=== PATIENT | female | born 1950 | race Caucasian/White ===

== ENCOUNTER 2024-08-24 13:10 | Emergency (ER) | payer MEDICARE, BC ==
[~2024-08-24] VITALS: Ht 157.5 cm; Wt 56.7 kg
[~2024-08-24 13:10] MED LIST: ASPI81TA31 PO; ATOR40TA PO; CALC-343 PO; CHOL-9 PO; CITA20TA16 PO; CLINDAMYCIN; DIAZ5TAB PO; DICLOFENAC 1%; LEVO88TA5 PO; LOSA50TA39 PO; METO-357 PO; MULT-594 PO; PANT40TA49 PO; TRET20CR35 TP
[2024-08-24] MEDS ORDERED: NIRM1TAB6 PO (15:53)
[2024-08-24] MEDS ORDERED: LIDO30AD10 TP (15:53)
[2024-08-24] MEDS ORDERED: HYDR-3980 PO (15:54)
[2024-08-24 16:02] VITALS: BP 122/69; O2SAT 99
== END 2024-08-24 16:04 | disposition home or self-care (01) ==
LOC: ER 13:10
DX: U07.1 COVID-19 (principal); S22.31XA Fracture of one rib, right side, initial encounter for closed fracture; M25.511 Pain in right shoulder; R05.9 Cough, unspecified; I25.2 Old myocardial infarction; Z79.82 Long term (current) use of aspirin; Z79.899 Other long term (current) drug therapy; Z60.2 Problems related to living alone; Z86.69 Personal history of other diseases of the nervous system and sense organs; Z87.39 Personal history of other diseases of the musculoskeletal system and connective tissue; Z86.59 Personal history of other mental and behavioral disorders; W18.39XA Other fall on same level, initial encounter; Y93.89 Activity, other specified; Y92.89 Other specified places as the place of occurrence of the external cause; Y99.8 Other external cause status
CPT/HCPCS: 71101; A4606; A4663